=== PATIENT | female | born 1960 | race Caucasian/White ===

== ENCOUNTER 2020-09-30 16:59 | Emergency (ER) | payer OTHER, MEDICARE, MEDICAID ==
[~2020-09-30] VITALS: Ht 162.6 cm; Wt 99.8 kg
[~2020-09-30 16:59] MED LIST: ABILIFY 5 MG TAB5 M1 PO; ABILIFY10 MG PO; ADVAIR 250-501 EACH INH; ADVAIR HFA115 MCG/21; ADVAIR HFA115 MCG/21 INH; ALPRAZOLAM; AMBIEN 5 MG TABL5 M1 PO; ASPIRIN; ASPIRIN325 PO; ATORVASTATIN CA40 MG PO; BROVANA15 MCG/2 M INH; DIABETA 5MG TABL5 MG PO; DUONEB 2.5-0.5 M3 ML INH; IMDUR; LASIX 40 MG TAB40 M2 PO; LEVAQUIN 500 M500 M2 PO; LEVEMIR; LIPITOR; LISINOPRIL20 MG PO; LOPRESSOR; LYRICA; LYRICA 75 MG CA75 MG PO; MELATONIN3 MG PO; METFORMIN HCL500 MG PO; NITROGLYCERIN0.4 MG SUBLING; OMEPRAZOLE20 M2 PO; POTASSIUM20 PO; PREDNISONE 10 M10 MG PO; PREDNISONE50 MG PO; PRILOSEC20 MG PO; PRINIVIL; PROAIR HFA8.5 GM INH; PROTONIX 20 MG20 MG; PROVENTIL; QVAR HFA 880 MCG/UN1 INH; SPIRIVA INH; TOPROL XL50 MG PO; TRAMADOL; TRAMADOL 50 MG50 MG PO; VITAMIN D1000 UNI1 PO; XANAX 0.5 MG0.5 MG PO; XOPENEX 0.63 MG/3 M1 INH; ZOLOFT; ZOLOFT50 MG PO; ZPAK PO
[2020-09-30 17:07] VITALS: BP 145/85
[2020-09-30] MEDS ORDERED: PLAVIX 75 MG TA75 MG PO (17:10)
== END 2020-09-30 17:50 | disposition home or self-care (01) ==
LOC: M.ERS 16:59
DX: R51.9 Headache, unspecified (principal); J44.9 Chronic obstructive pulmonary disease, unspecified; M79.7 Fibromyalgia; E03.9 Hypothyroidism, unspecified; Z88.8 Allergy status to other drugs, medicaments and biological substances; Z88.5 Allergy status to narcotic agent; Z79.82 Long term (current) use of aspirin; Z79.899 Other long term (current) drug therapy; V49.88XA Car occupant (driver) (passenger) injured in other specified transport accidents, initial encounter; Y93.89 Activity, other specified; Y92.413 State road as the place of occurrence of the external cause; Y99.9 Unspecified external cause status